=== PATIENT | male | born 1985 | race African-American/Black ===

== ENCOUNTER 2017-04-11 12:45 | Emergency (ER) | payer SELFPAY ==
[~2017-04-11] VITALS: Ht 172.7 cm; Wt 101.7 kg
[2017-04-11 13:20] LABS: HEMATOCRIT 44.8 % (38.0-50.0); MCH 26.3 PG (29.0-34.0); MCHC 32.1 G/DL (30.0-36.0); MCV 81.9 FL (86-99); PLATELET COUNT 232 K/uL (156-360); RBC DIS.WIDTH-CV 13.9 % (11.8-14.6); RBC DIS.WIDTH-SD 41.1 % (39-53); RED BLOOD COUNT 5.47 M/uL (4.00-5.50); WHITE BLOOD COUNT 6.4 K/uL (4.1-10.2)
[2017-04-11 13:27] LABS: CHLORIDE 105 mEq/L (99-109); POTASSIUM 4.4 mEq/L (3.7-5.4); SODIUM 138 mEq/L (136-147)
[2017-04-11 13:29] LABS: GLUCOSE 114 mg/dL (70-99)
[2017-04-11 13:31] LABS: ANION GAP 8 MEQ/L (2-14)
[2017-04-11 13:33] LABS: GFR ESTIMATE (CALCULATED) > 59 mL/min/
[2017-04-11 13:34] LABS: UREA NITROGEN (BUN) 13 mg/dL (9-23)
[2017-04-11] MEDS ORDERED: MOTRIN800 MG PO (14:21)
[2017-04-11 14:23] VITALS: BP 117/72
== END 2017-04-11 14:23 | disposition home or self-care (01) ==
LOC: EME 12:45
PROVIDERS: Nurse Practitioner Family
DX: J10.1 Influenza due to other identified influenza virus with other respiratory manifestations (principal)
CPT/HCPCS: 71020; 80048; 85027; 87502; 99281; 99283